=== PATIENT | female | born 2000 | race Caucasian/White ===

== ENCOUNTER 2024-06-30 21:33 | Emergency (ER) | payer MEDICAID ==
[~2024-06-30] VITALS: Ht 160 cm; Wt 47.0 kg
[2024-06-30 21:37] VITALS: TEMP 37.1; O2SAT 100
[2024-06-30] MEDS: KETOROLAC 15MG/ML VIAL IV ONE (23:06)
[2024-06-30] MEDS: SODIUM CHLORIDE 0.9% 1,000 ML IV ONE (23:06)
[2024-06-30 23:09] LABS: BASOPHILS % 0.6 % (0.0-2.0); EOSINOPHILS % 2.2 % (0.0-5.0); HEMOGLOBIN. 13.2 g/dL (12.0-16.0); LYMPHOCYTES % 18.3 % (20.0-50.0); MEAN CORPUSCULAR HGB CONC 33.7 g/dL (31.0-37.0); MEAN PLATELET VOLUME 9.3 fl (7.4-10.4); NEUTROPHILS % 73.9 % (40.0-76.0); PLATELET 207 x1000/uL (130-400); RED BLOOD CELL COUNT 4.38 mill/uL (4.2-5.4); RED CELL DISTRIBUTION WIDTH 13.1 % (11.6-14.6); WHITE BLOOD COUNT 8.3 x1000/uL (4.5-11.0)
[2024-06-30 23:14] LABS: CHLORIDE 104 mEq/L (98-107); POTASSIUM 4.1 mEq/L (3.5-5.1); SODIUM 139 mEq/L (136-145)
[2024-06-30 23:16] LABS: CALCIUM 10.1 mg/dL (8.7-10.4); CARBON DIOXIDE 28 mEq/L (21-32)
[2024-06-30 23:17] LABS: PROTHROMBIN TIME 10.4 sec (9.6-11.0)
[2024-06-30 23:21] LABS: CREATININE 0.7 mg/dL (0.6-1.0); GLUCOSE 98 mg/dL (70-105); UREA NITROGEN BLOOD 22 mg/dL (9-23)
[2024-06-30 23:23] LABS: ALANINE AMINOTRANSFERASE 16 IU/L (10-49); ALBUMIN 4.7 g/dL (3.2-4.8); ASPARTATE AMINOTRANSFERASE 21 IU/L (<34); BILIRUBIN DIRECT 0.4 mg/dL (<=3.0); BILIRUBIN TOTAL 1.3 mg/dL (0.1-1.0); PROTEIN TOTAL 7.9 g/dL (6.0-8.3)
[2024-06-30 23:31] LABS: TROPONIN I HIGH SENSITIVITY < 4 ng/L (3.0-34)
[2024-06-30 23:58] LABS: HCG SCREEN NEGATIVE
[2024-07-01] MEDS: ACETAMINOPHEN 325MG TABLET PO ONE (02:28)
[2024-07-01] MEDS: METOCLOPRAMIDE HCL 10MG/2ML VIAL IV ONE (02:29)
[2024-07-01 03:53] LABS: TROPONIN I HIGH SENSITIVITY < 4 ng/L (3.0-34)
[2024-07-01 05:15] VITALS: BP 95/44; PULSE 92; RESP 16; O2SAT 99
== END 2024-07-01 05:15 | disposition home or self-care (01) ==
LOC: ER 21:33
DX: R55 Syncope and collapse (principal); F12.10 Cannabis abuse, uncomplicated
CPT/HCPCS: 99285; 96361; 96374; 71045; 80076; 80048; 84703; 85025; 85610; 84484 ×2; 36415 ×2; 72170; 70450; 86850; 86900; 86901; 72125; J1885; J7030; J2765